=== PATIENT | female | born 1995 | race Caucasian/White ===

== ENCOUNTER 2017-06-04 09:44 | Emergency (ER) | payer SELFPAY ==
[2015-05-02 12:22] VITALS: Wt 95.3 kg
[~2017-06-04 09:44] MED LIST: ACE3 PO; AZI250 PO; CEPH500C24 PO; ETON68IM SQ; GUAI-652 PO; iud
--- NOTE | 2017-06-04 09:56 | ER Report ---
History and Physical Time Seen By MD: 09:55 Hx. of Stated Complaint: RIGHT WRIST INJURY TWO DAYS AGO. SLIPPED ON STAIRS AND CAUGHT SELF WITH WRIST. HPI/ROS CHIEF COMPLAINT: Right wrist injury HISTORY OF PRESENT ILLNESS: Patient is a 21-year-old female who fell on her right outstretched hand as she was walking down her stairs and tripped. This injury occurred approximately 2 days ago. She is complaining of pain to the radial aspect of the wrist at the snuffbox area and also into the proximal and middle thirds of the forearm. He is right-hand dominant. She did take approximately 600 mg of Advil just prior to arrival. Allergies: Coded Allergies: No Known Drug Allergies (Verified , 06/04/17) Home Meds Active Scripts Hydrocodone Bit/Acetaminophen (HYDROCODON-ACETAMINOPHEN 5-325) 1 Each Tablet, 1 EACH PO Q4-6H Y for PAIN, #9 TAB 0 Refills TAKE ONE TABLET BY MOUTH EVERY 4-6 HOURS NEEDED FOR PAIN Prov:DARREN DIEGO MD 06/04/17 Reported Medications Etonogestrel (NEXPLANON) 68 Mg Implant, 68 MG SQ DIRECTED, IMPLANT 05/01/15 Past Medical/Surgical History Noncontributory to this chief complaint Hx Smoking: Yes Smoking Status: Former Smoker Exposure to Second Hand Smoke?: Yes Hx Substance Use Disorder: No Hx Alcohol Use: Yes Constitutional Vital Sign - Last 24 Hours 06/04/17 09:49 Temp 97.6 Pulse 83 Resp 18 B/P (MAP) 120/77 Pulse Ox 93 O2 Delivery Room Air Physical Exam General appearance: alert no distress Right hand: There is no significant swelling. There is no obvious deformity to the hand. There is no tenderness of the 5th metacarpal. There is definite snuff box tenderness and a small bruise over this area. Skin: Intact Neurologic exam: The patient has normal sensation distal to the injury. Tendon function is intact. Vascular exam: Normal pulses and capillary refill in the fingers DIFFERENTIAL DIAGNOSIS: After history and physical exam differential diagnosis was considered for hand injury including contusion, fracture, ligamentous and tendon injuries. Medical Decision Making EKG/Imaging Imaging FACILITY: [facility] PATIENT NAME: Soo Garcia : 1995 MR: [id number] V: [id number] EXAM DATE: [id number] ORDERING PHYSICIAN: DARREN DIEGO TECHNOLOGIST: [facility] Patient: Soo Garcia : 1995 Visit/Account:[id number] Date of Sevice: 06/04/2017 INDICATION: fall. DATE: 06/04/2017 10:22 AM. TECHNIQUE: WRIST RIGHT MIN 3 VIEW, FOREARM RIGHT COMPARISON: None FINDINGS: Right wrist: Normal alignment. No fracture or dislocation. Right forearm: Normal alignment. No fracture or dislocation. IMPRESSION: Radiographically normal wrist and forearm. Report Dictated By: Teri Peoples MD at 06/04/2017 10:22 AM Report E-Signed By: Teri Peoples MD at 06/04/2017 10:24 AM WSN:[id number] ED Course/Re-evaluation ED Course 06/04/2017 10:45:59 am Patient with snuffbox tenderness to the right wrist x-rays are negative for any acute fractures. We will place the patient in a thumb spica splint have her follow-up with orthopedics in 1-2 weeks for reevaluation if pain persist to rule out occult scaphoid fracture Procedure: Splint placement. A short arm, thumb spica splint was applied. After application of the splint I returned and re-examined the patient. The splint was adequately immobilizing the joint and distal to the splint the patient's circulation and sensation was intact. Decision to Disposition Date: Jun 04, 2017 Decision to Disposition Time: 10:46 Depart Departure Latest Vital Signs Vital Signs Date Time Temp Pulse Resp B/P (MAP) Pulse Ox O2 Delivery O2 Flow Rate FiO2 06/04/17 09:49 97.6 83 18 120/77 93 Room Air Impression: Primary Impression: Wrist pain, acute Condition: Improved Disposition: HOME OR SELF-CARE Referrals: [facility] 2 Weeks For reevaluation of wrist injury New Scripts Hydrocodone Bit/Acetaminophen (HYDROCODON-ACETAMINOPHEN 5-325) 1 Each Tablet 1 EACH PO Q4-6H Y for PAIN, #9 TAB 0 Refills TAKE ONE TABLET BY MOUTH EVERY 4-6 HOURS NEEDED FOR PAIN Prov: DARREN DIEGO MD 06/04/17 Departure Forms: ER Transition Record, Medications Reconciliation, Off Work/ School Form, School or Work Release?: Work Number of days to be released: 2 Patient Portal Information Patient Instructions: Splint Care (ED), Wrist Injury (ED) Additional Instructions: Where your splint at all times, no weightbearing to right hand until evaluated by orthopedics in 1-2 weeks for your wrist injury Call and schedule follow-up appointment with [facility] this Monday for an appointment within the next 1-2 weeks Problem Qualifiers Primary Impression: Wrist pain, acute Laterality: right Qualified Codes: M25.531 - Pain in right wrist DARREN DIEGO MD Jun 04, 2017 09:56
--- NOTE | 2017-06-04 10:29 | RADIOLOGY IMAGING REPORT ---
FACILITY: [facility] [place] PATIENT NAME: Soo Garcia : 1995 MR: [id number] V: [id number] EXAM DATE: [id number] ORDERING PHYSICIAN: DARREN DIEGO TECHNOLOGIST: Location: [facility] Patient: Soo Garcia : 1995 Visit/Account:[id number] Date of Sevice: 06/04/2017 INDICATION: fall. DATE: 06/04/2017 10:22 AM. TECHNIQUE: WRIST RIGHT MIN 3 VIEW, FOREARM RIGHT COMPARISON: None FINDINGS: Right wrist: Normal alignment. No fracture or dislocation. Right forearm: Normal alignment. No fracture or dislocation. IMPRESSION: Radiographically normal wrist and forearm. Report Dictated By: Teri Peoples MD at 06/04/2017 10:22 AM Report E-Signed By: Teri Peoples MD at 06/04/2017 10:24 AM WSN:[email or web address]
--- NOTE | 2017-06-04 10:29 | RADIOLOGY IMAGING REPORT ---
FACILITY: [facility] PATIENT NAME: Soo Garcia : 1995 MR: [id number] V: [id number] EXAM DATE: ORDERING PHYSICIAN: DARREN DIEGO TECHNOLOGIST: Location: [facility] Patient: Soo Garcia : 1995 Visit/Account:[id number] Date of Sevice: 06/04/2017 INDICATION: fall. DATE: 06/04/2017 10:22 AM. TECHNIQUE: WRIST RIGHT MIN 3 VIEW, FOREARM RIGHT COMPARISON: None FINDINGS: Right wrist: Normal alignment. No fracture or dislocation. Right forearm: Normal alignment. No fracture or dislocation. IMPRESSION: Radiographically normal wrist and forearm. Report Dictated By: Teri Peoples MD at 06/04/2017 10:22 AM Report E-Signed By: Teri Peoples MD at 06/04/2017 10:24 AM WSN:[id number]
[2017-06-04] MEDS ORDERED: LOR5/325 PO (10:48)
[2017-06-04 11:00] VITALS: BP 95/75
== END 2017-06-04 11:00 | disposition home or self-care (01) ==
LOC: ER 09:55
DX: M25.531 Pain in right wrist (principal)
CPT/HCPCS: 99283

== ENCOUNTER 2017-12-11 20:07 | Emergency (ER) | payer SELFPAY ==
[2015-05-02 12:22] VITALS: Wt 79.4 kg
[~2017-12-11 20:07] MED LIST changes: +LOR5/325 PO
[2017-12-11 20:14] VITALS: BP 123/85
--- NOTE | 2017-12-11 20:23 | ER Report ---
History and Physical Time Seen By MD: 20:23 Hx. of Stated Complaint: PT ROLLED RIGHT ANKLE LAST NIGHT. HPI/ROS CHIEF COMPLAINT: Right ankle pain HISTORY OF PRESENT ILLNESS: 22-year-old female patient presents to emergency room with complaint of right ankle pain. Patient states that she was out looking for her dog last night. She states that she had gotten up on a dirt embankment hoping that the high location would help find the dog. She states that she did see the dogs eyes the toilet. She ran down the embankment and felt her ankle twisted. She says that her twisted so significantly that she felt her shoe touch her lower leg. She states that today she is probably be able put any weight on her foot stating that when she does she quickly transitions over to the left foot. She states she does have some mild numbness and tingling to the foot. Patient states she talked with her friend who is a an EMT and was told that she should come in for evaluation. Allergies: Coded Allergies: No Known Drug Allergies (Verified , 12/11/17) Home Meds Reported Medications Etonogestrel (NEXPLANON) 68 Mg Implant, 68 MG SQ DIRECTED, IMPLANT 05/01/15 Discontinued Scripts Hydrocodone Bit/Acetaminophen (HYDROCODON-ACETAMINOPHEN 5-325) 1 Each Tablet, 1 EACH PO Q4-6H PRN for PAIN, #9 TAB 0 Refills TAKE ONE TABLET BY MOUTH EVERY 4-6 HOURS NEEDED FOR PAIN Prov:DARREN DIEGO MD 06/04/17 Past Medical/Surgical History Patient has a past medical history of migraines, frequent UTI, alcohol use, situational depression, suicide attempt. Patient denies any surgical history. Reviewed Nurses Notes: Yes Hx Smoking: Yes Smoking Status: Former Smoker Exposure to Second Hand Smoke?: Yes Hx Substance Use Disorder: No Hx Alcohol Use: Yes Constitutional Vital Sign - Last 24 Hours 12/11/17 12/11/17 12/11/17 12/11/17 20:13 20:14 20:22 20:37 Temp 98.9 Pulse 109 99 91 Resp 16 B/P (MAP) 123/85 (98) 123/85 Pulse Ox 94 93 92 O2 Delivery Room Air 12/11/17 12/11/17 12/11/17 12/11/17 20:52 21:07 21:22 21:37 Pulse 89 86 88 80 Pulse Ox 94 93 93 93 12/11/17 12/11/17 21:52 21:57 Pulse 72 75 Pulse Ox 92 91 Physical Exam General Appearance: The patient is alert, has no immediate need for airway protection and no current signs of toxicity. Respiratory: Chest is non tender, lungs are clear to auscultation. Cardiac: regular rate and rhythm Musculoskeletal: Patient has swelling to the right ankle, tenderness to palpation to both medial and lateral malleoli. DIFFERENTIAL DIAGNOSIS: After history and physical exam differential diagnosis was considered for ankle sprain, ankle fracture, ankle strain. Medical Decision Making EKG/Imaging Imaging FOOT 3 VIEW RIGHT ANKLE 3 VIEW MIN RIGHT Indication: Right foot and ankle pain. Comparison: None available. Findings: Right foot: 3 views. No evidence of acute fracture, dislocation, or radiopaque foreign body. Normal mineralization, joint spaces, and alignment. Small accessory navicular bone. Right ankle: 3 views. Soft tissue swelling, lateral worse than medial. No evidence of acute fracture, dislocation, or radiopaque foreign body. Normal mineralization, joint spaces, and alignment. Impression: Soft tissue swelling around the ankle, lateral worse than medial. No acute fractures. Report Dictated By: Trevor Shrestha MD at 12/11/2017 9:41 PM Report E-Signed By: Trevor Shrestha MD at 12/11/2017 9:43 PM ED Course/Re-evaluation ED Course Patient was admitted to an exam room, history and physical were obtained. Differential diagnoses were considered. On examination lungs are clear, heart is regular, right ankle is swollen, there is no deformity noted. She does have tenderness to palpation to both lateral and medial malleoli. X-rays done of the right ankle as well as right foot. X-rays were read by radiologist as negative. I discussed the findings with the patient. We'll go ahead and place her in an Aircast, given crutches, have her limit her activity by pain. She states Tylenol ibuprofen as needed for pain. She is return to the emergency room if condition worsens. She is to follow-up with primary care provider one week if pain per sists. Patient verbalized understanding and agreement with plan. Decision to Disposition Date: Dec 11, 2017 Decision to Disposition Time: 22:04 Depart Departure Latest Vital Signs Vital Signs Date Time Temp Pulse Resp B/P (MAP) Pulse Ox O2 Delivery O2 Flow Rate FiO2 12/11/17 21:57 75 91 12/11/17 20:14 98.9 16 123/85 Room Air Impression: Primary Impression: Ankle sprain Condition: Improved Disposition: HOME OR SELF-CARE Patient Instructions: Ankle Sprain (ED) Additional Instructions: Limit activity by pain. Ice the ankle 2-3 times a day for 20-30 minutes.. Follow up with your primary care provider in the next week. Return to the ER if condition worsens. You may take Ibuprofen or Tylenol as needed for pain. Problem Qualifiers Primary Impression: Ankle sprain Encounter type: initial encounter Involved ligament of ankle: unspecified ligament Laterality: right Qualified Codes: S93.401A - Sprain of unspecified ligament of right ankle, initial encounter TIFFANIE HANCOCK Dec 11, 2017 20:23
--- NOTE | 2017-12-11 21:48 | RADIOLOGY IMAGING REPORT ---
FACILITY: [facility] PATIENT NAME: Soo Garcia : 1995 MR: [id number] V: [id number] EXAM DATE: ORDERING PHYSICIAN: TIFFANIE HANCOCK TECHNOLOGIST: Location: [facility] [place] Patient: Soo Garcia : 1995 Visit/Account:[id number] Date of Sevice: 12/11/2017 FOOT 3 VIEW RIGHT ANKLE 3 VIEW MIN RIGHT Indication: Right foot and ankle pain. Comparison: None available. Findings: Right foot: 3 views. No evidence of acute fracture, dislocation, or radiopaque foreign body. Normal mineralization, joint spaces, and alignment. Small accessory navicular bone. Right ankle: 3 views. Soft tissue swelling, lateral worse than medial. No evidence of acute fractur e, dislocation, or radiopaque foreign body. Normal mineralization, joint spaces, and alignment. Impression: Soft tissue swelling around the ankle, lateral worse than medial. No acute fractures. Report Dictated By: Trevor Shrestha MD at 12/11/2017 9:41 PM Report E-Signed By: Trevor Shrestha MD at 12/11/2017 9:43 PM WSN:[id number]
--- NOTE | 2017-12-11 21:48 | RADIOLOGY IMAGING REPORT ---
FACILITY: [facility] PATIENT NAME: Soo Garcia : 1995 MR: [id number] V: [id number] EXAM DATE: ORDERING PHYSICIAN: TIFFANIE HANCOCK TECHNOLOGIST: Location: [facility] [place] Patient: Soo Garcia : 1995 Visit/Account:[id number] Date of Sevice: 12/11/2017 FOOT 3 VIEW RIGHT ANKLE 3 VIEW MIN RIGHT Indication: Right foot and ankle pain. Comparison: None available. Findings: Right foot: 3 views. No evidence of acute fracture, dislocation, or radiopaque foreign body. Normal mineralization, joint spaces, and alignment. Small accessory navicular bone. Right ankle: 3 views. Soft tissue swelling, lateral worse than medial. No evidence of acute fractur e, dislocation, or radiopaque foreign body. Normal mineralization, joint spaces, and alignment. Impression: Soft tissue swelling around the ankle, lateral worse than medial. No acute fractures. Report Dictated By: Trevor Shrestha MD at 12/11/2017 9:41 PM Report E-Signed By: Trevor Shrestha MD at 12/11/2017 9:43 PM WSN:[id number]
== END 2017-12-11 22:14 | disposition home or self-care (01) ==
LOC: ER 20:47
DX: S93.401A Sprain of unspecified ligament of right ankle, initial encounter (principal); X50.1XXA Overexertion from prolonged static or awkward postures, initial encounter
CPT/HCPCS: 99284